=== PATIENT | male | born 1950 ===

== ENCOUNTER → 2020-06-12 | Outpatient (CLI) | payer OTHER, BC ==
[~2020-06-12] MED LIST: ALLOPURINOL 30300 M1 PO; NORVASC5 MG PO; VITAMIN C500 M1 PO; VITAMIN D3250 MC1 PO
== END ==
LOC: LAB 13:51
PROVIDERS: ATTEND Surgery
DX: Z01.812 Encounter for preprocedural laboratory examination (principal); Z20.822 Contact with and (suspected) exposure to COVID-19